=== PATIENT | female | born 1955 | race Caucasian/White ===

== ENCOUNTER 2018-03-26 08:45 | Outpatient (CLI) | payer OTHER ==
[~2018-03-26 08:45] MED LIST: TENORMIN25 MG PO
== END 2018-03-26 08:55 | disposition home or self-care (01) ==
LOC: RAD 08:45
DX: M15.8 Other polyosteoarthritis (principal)

== ENCOUNTER → 2019-03-08 | Outpatient (CLI) | payer OTHER | END | disposition home or self-care (01) | LOC: NUCLEAR 14:30 | DX: M81.0 Age-related osteoporosis without current pathological fracture (principal); M85.88 Other specified disorders of bone density and structure, other site ==

== ENCOUNTER → 2021-04-03 13:09 | Outpatient (CLI) | payer OTHER | END | disposition home or self-care (01) | LOC: NUCLEAR 04-02 13:00 | PROVIDERS: ATTEND Internal Medicine Rheumatology | DX: M81.0 Age-related osteoporosis without current pathological fracture (principal); M85.88 Other specified disorders of bone density and structure, other site ==

== ENCOUNTER → 2022-04-10 07:14 | Outpatient (CLI) | payer OTHER | END | disposition home or self-care (01) | LOC: NUCLEAR 07:14 | PROVIDERS: ATTEND Internal Medicine Rheumatology | DX: M15.8 Other polyosteoarthritis (principal); M06.4 Inflammatory polyarthropathy; M46.1 Sacroiliitis, not elsewhere classified | CPT/HCPCS: 78315; A9503 ==

== ENCOUNTER 2025-04-18 10:02 | Outpatient (CLI) | payer OTHER | END 2025-04-18 10:04 | disposition home or self-care (01) | LOC: NUCLEAR 10:02 | PROVIDERS: ATTEND Internal Medicine Rheumatology | DX: M81.0 Age-related osteoporosis without current pathological fracture (principal) ==

== ENCOUNTER 2025-06-13 07:52 | Outpatient (CLI) | payer OTHER | END 2025-06-13 07:57 | disposition home or self-care (01) | LOC: RAD 07:52 | PROVIDERS: ATTEND Internal Medicine Rheumatology | DX: I11.9 Hypertensive heart disease without heart failure (principal) ==

== ENCOUNTER 2025-08-29 07:58 | Outpatient (CLI) | payer OTHER | END 2025-08-29 08:03 | disposition home or self-care (01) | LOC: RAD 07:58 | PROVIDERS: ATTEND Orthopaedic Surgery Adult Reconstructive Orthopaedic Surgery | DX: M17.11 Unilateral primary osteoarthritis, right knee (principal); Z96.652 Presence of left artificial knee joint ==